=== PATIENT | male | born 1940 | race Caucasian/White ===

== ENCOUNTER → 2025-03-03 07:20 | Outpatient (REF) | payer OTHER, SELFPAY | LOC: REG 07:20 | PROVIDERS: ATTENDING PHYSICIAN Internal Medicine Cardiovascular Disease; FAMILY PHYSICIAN Family Medicine | DX: I48.0 Paroxysmal atrial fibrillation (principal) | CPT/HCPCS: 71046 ==

== ENCOUNTER → 2025-04-30 14:35 | Outpatient (REF) | payer OTHER, SELFPAY | LOC: PAVMRI 14:35 | PROVIDERS: ATTENDING PHYSICIAN Physician Assistant; FAMILY PHYSICIAN Family Medicine | DX: H90.A22 Sensorineural hearing loss, unilateral, left ear, with restricted hearing on the contralateral side (principal) | CPT/HCPCS: 70553; A9575 ==

== ENCOUNTER 2025-06-15 08:02 | Emergency (ER) | payer OTHER, SELFPAY ==
[2025-06-15 08:11] VITALS: BP 158/82
[2025-06-15 08:18] VITALS: BP 176/77
--- NOTE | 2025-06-15 08:38 | ED.GENMED ---
History of Present Illness
General
Chief Complaint: Abdominal Symptoms
Source: patient
Time Seen by Provider: 06/15/25 08:26
History of Present Illness
History of Present Illness:
84-year-old male presents to the emergency room complaining of nausea, vomiting, difficulty walking and feeling dizzy. Patient states that he awoke at 555 this morning. When he got up to unlock his doors he noted difficulty walking and feeling
dizzy. He began having nausea and vomited multiple times. Brought to the hospital by his son. 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 Patient
denies any headache. He was at his baseline health until this morning. He did not take anything for symptoms.
If applicable-neuro sx onset
Onset of symptoms known: No
Time pt last seen normal is known: Yes
Date last time pt seen normal: 06/14/25
Time last time pt seen normal: 22:00
Past History
Past History
ED Past Medical History: CAD and Hypercholesterolemia
ED Past Surgical History: Appendectomy, Cardiac, Orthopedic and Other (Hernia)
Social History
Tobacco: Former smoker
Personal:
Living: with family
Phy Exam
Physical Exam
Physical Exam:
General: Awake, Alert, Oriented X3. Appears mildly uncomfortable from nausea
Vitals: unremarkable
Head: Atraumatic
Eyes: Pupils equal, EOMI, positive horizontal nystagmus
Throat: Airway intact, no exudates, mildly dry mucosa
Neck: Trachea midline
Lungs: Clear and equal b/l
Heart: Regular rate, no murmurs
Abd: Soft, Nontender, No pulsatile mass
Neuro: Cranial nerves intact, muscle strength equal bilaterally, cerebellar exam normal
Skin: Warm, dry, no rash
Extremities: pulses equal b/l, no edema
Course
Orders/Labs/Results
Orders:
Orders
06/15/25 08:36
0.9% Sodium Chloride 500 ml [Nss] 500 ml IV BOLUS
Meclizine [Antivert] 25 mg PO NOW STA
Ondansetron Injectable [Zofran] 4 mg IV NOW STA
06/15/25 08:37
Electrocardiogram (*1) Stat
Reason for Study: Other
Other Reason for Exam: neuro symptoms
CT Head W/o Iv Contrast Urgent
Comment:
Reason For Exam: dizziness, ataxia
Cardiac Monitoring- Treatment ONCE
EKG- Treatment ONCE
06/15/25 09:00
Basic Metabolic Panel Urgent
Complete Blood Count/With Diff Urgent
Abnormal Lab Results
06/15/25
09:00
RBC 4.18 L 10^6/uL
(4.70-6.10)
MCV 97.8 H fL
(80.0-94.0)
MCH 31.3 H pg
(27.0-31.0)
MCHC 32.0 L g/dL
(33.0-37.0)
Abs Immat Gran (auto) 0.1 H 10^3/uL
(0-0.05)
Absolute Neuts (auto) 7.6 H 10^3/uL
(1.4-6.5)
Absolute Lymphs (auto) 0.5 L 10^3/uL
(1.2-3.4)
Immature Gran % 0.6 H %
(0-0.5)
Neutrophils % 86.0 H %
(42.2-75.2)
Lymphocytes % 6.1 L %
(20.5-51.1)
Chloride 108 H mmol/L
(98-107)
Glucose 128 H mg/dl
(70-99)
06/15/25 09:00
06/15/25 09:00
Vital Signs
Initial and Last Documented VS:
Initial Vital Signs
Temp Pulse Resp BP Pulse Ox
97.1 F 59 18 158/82 97
06/15/25 08:11 06/15/25 08:11 06/15/25 08:11 06/15/25 08:11 06/15/25 08:11
Last Documented Vital Signs
Temp Pulse Resp BP Pulse Ox
97.1 F 63 18 143/85 98
06/15/25 08:11 06/15/25 10:15 06/15/25 10:15 06/15/25 10:00 06/15/25 10:15
MDM/Problems Addressed
Differential Diagnosis Includes:
CVA, labyrinthitis, BPPV
MDM/Problems Addressed:
Patient presents with vertigo, nausea, difficulty walking. No focal weakness. Vertigo seems to be clearly elicited by head movement to the left. Labs and CT are reassuring. Patient feels much better after treatment with Antivert, Zofran and some
IV fluids. He is ambulatory without any difficulty. Suspect BPPV. Recommend follow-up with primary care doctor. Outpatient physical therapy given as well.
*Radiology
Radiology exam reviewed: radiology read reviewed
*Pulse Oximetry
SaO2: 97
Oxygen Mode of Delivery: Room air
Patient hypoxic: no
*EKG
Interpreted by ED Provider?: Yes
Heart Rate: 61
Rate: normal
Rhythm: sinus
[place]: normal axis
Interval: normal interval
QRS Pattern: normal QRS
Ischemia: no ischemia
*Client Architect Interpretation
Rate: normal
Interpretation: normal
Rhythm: sinus
*Critical Care Note
Total Time (30-74mins, 75-104mins- exclusive of procedures): Not Applicable
ED Attending Note
-
Portions of this chart may have been created with voice recognition software.� Occasional wrong word or��sound alike� substitutions may have occurred due to the inherent limitations of voice recognition software.
Discharge Plan
Departure
Patient Disposition: Home (Routine Discharge)
Date of Disposition: 06/15/25
Time of Disposition: 10:16
Patient with high blood pressure during this ER visit?: Yes
Condition: Good
Discharge Problem:
Benign paroxysmal positional vertigo
Instructions: Vertigo - ED (DC)
Prescriptions:
No Action
docosahexaenoic acid-epa 1 CAP capsule
1 cap PO BID
sulfamethoxazole-trimethoprim 800-160 mg Tablet
1 tab PO BID Qty: 22 0RF
Eliquis 5 mg Tablet
5 mg PO BID Qty: 60 0RF
atorvastatin 20 mg Tablet
20 mg PO QPM Qty: 30 0RF
amiodarone 200 mg tablet
200 mg PO BID Qty: 60 0RF
metoprolol succinate 25 mg Tablet Extended Release 24 Hr
25 mg PO DAILY 30 Days Qty: 30 0RF
Referrals:
Kole Morrell MD [Family Provider, Family Practice]
Activity Restrictions/Additional Instructions:
Please follow-up with your primary care provider. Have given you a prescription for physical therapy which can help with vertigo. Give our physical therapy department a call at [phone]. You can take a medication called meclizine if your
symptoms come back. You can get this in the pharmacy without a prescription.
Interventions
Interventions:
*Risk Screen - Suicide Last Done: 06/15/25 08:11
*General Assessment Last Done: 06/15/25 08:11
*Neglect/Abuse Screening Last Done: 06/15/25 08:11
*ED- Fall Risk Assessment Last Done: 06/15/25 09:11
*ED COVID-19 Vaccine History Last Done: 06/15/25 09:11
*ED Influenza Vaccine History Last Done: 06/15/25 09:11
*Nursing Disposition Last Done: 06/15/25 11:02
IP-Uruldb-Jwapqhtaxc Assessment Last Done: 06/15/25 09:11
Discharge Date and Time
Discharge Date/Time: 06/15/25 11:03
Print Language: CITIZEN OF [place]
[2025-06-15 08:46] VITALS: BMI 25.0
[2025-06-15] MEDS: ANTIVERT 25 MG PO (08:56)
[2025-06-15] MEDS: ZOFRAN 4 MG IV (08:56)
[2025-06-15] MEDS: NSS 500 IV (08:57)
[2025-06-15 09:10] LABS: Hematocrit 40.9 % (39.0-52.0); Hemoglobin 13.1 g/dL (13.0-18.0); Mean Corp Hgb Conc. 32.0 g/dL (33.0-37.0); Mean Corpuscular Volume 97.8 fL (80.0-94.0); Nucleated Red Blood Cells % 0 % (-); Platelet Count 183 10^3/uL (130-400); Red Cell Dist. Width 13.8 % (11.5-14.5)
[2025-06-15 09:26] LABS: Blood Urea Nitrogen 17 mg/dl (9-20); Calcium 8.5 mg/dl (8.4-10.2); Carbon Dioxide 29 mmol/L (22-30); Chloride 108 mmol/L (98-107); Estimated Creatinine Clearance 46 ml/min; Glucose 128 mg/dl (70-99); Potassium 4.1 mmol/L (3.5-5.1); Sodium 141 mmol/L (135-145); eGFR > 60.00
[2025-06-15 10:00] VITALS: BP 143/85
== END 2025-06-15 11:03 | disposition home or self-care (01) ==
LOC: EMR 08:02
PROVIDERS: EMERGENCY PHYSICIAN Emergency Medicine; FAMILY PHYSICIAN Family Medicine
DX: H81.10 Benign paroxysmal vertigo, unspecified ear (principal); R11.2 Nausea with vomiting, unspecified; R03.0 Elevated blood-pressure reading, without diagnosis of hypertension; I25.10 Atherosclerotic heart disease of native coronary artery without angina pectoris; E78.00 Pure hypercholesterolemia, unspecified; Z87.891 Personal history of nicotine dependence; Z88.0 Allergy status to penicillin
CPT/HCPCS: 99285; 96374; 96361; 70450; 80048; 85025; 93005